=== PATIENT | male | born 1965 | race Caucasian/White ===

== ENCOUNTER 2018-08-06 14:30 | Inpatient (IN) | payer BC, OTHER ==
[2018-08-06 15:15] LABS: VENOUS BASE EXCESS -14.1 (-2.0-2.0); VENOUS HCO3 13.7 MEQ/L (23.0-27.0); VENOUS O2 SATURATION 74.9 % (60.0-80.0); VENOUS PARTIAL PRESSURE CO2 38.6 mmHg (38.0-50.0); VENOUS PARTIAL PRESSURE O2 42.4 mmHg (30.0-50.0); VENOUS PH 7.169 UNITS (7.330-7.430); VENOUS STANDARD HCO3 13.6 MEQ/L; VENOUS TOTAL CO2 14.9 MEQ/L (24.0-28.0)
[2018-08-06] MEDS: INSULIN HUMAN REGULAR 100 UNITS in NS 99 ML IV (15:15)
[2018-08-06 15:25] LABS: BASO % 0.3 % (0.0-1.0); HEMATOCRIT 49.1 % (42.0-52.0); HEMOGLOBIN 17.1 g/dl (13.5-17.5); IMMATURE GRANULOCYTE % 0.6 % (0-3.0); LYMPH # 1.8 10^3/uL (1.5-4.5); LYMPH % 15.7 % (24.0-44.0); MEAN CORPUSCULAR HEMOGLOBIN 30.5 pg (27.0-33.0); MEAN CORPUSCULAR HGB CONC 34.8 g/dl (32.0-36.5); MEAN CORPUSCULAR VOLUME 87.5 fl (80.0-96.0); MONO % 8.2 % (0.0-5.0); NEUTROPHILS # 8.8 10^3/uL (1.8-7.7); NEUTROPHILS % 75.2 % (36.0-66.0); PLATELET COUNT, AUTOMATED 231 10^3/uL (150-450); RED BLOOD COUNT 5.61 10^6/uL (4.30-6.10); RED CELL DISTRIBUTION WIDTH 12.7 % (11.5-14.5); WHITE BLOOD COUNT 11.7 10^3/uL (4.0-10.0)
[2018-08-06 15:33] LABS: ANION GAP 18 MEQ/L (8-16); BLOOD UREA NITROGEN 25 MG/DL (7-18); CALCIUM LEVEL 11.6 MG/DL (8.5-10.1); CARBON DIOXIDE LEVEL 13 MEQ/L (21-32); CHLORIDE LEVEL 97 MEQ/L (98-107); CREATININE FOR GFR 1.56 MG/DL (0.70-1.30); GLOMERULAR FILTRATION RATE 49.8 (>56); GLUCOSE, FASTING 227 MG/DL (70-100); POTASSIUM SERUM 4.8 MEQ/L (3.5-5.1); SODIUM LEVEL 128 MEQ/L (136-145)
[2018-08-06 15:36] LABS: ESTIMATED AVERAGE GLUCOSE 197 MG/DL (60-110); HEMOGLOBIN A1c 8.5 %
[2018-08-06] MEDS ORDERED: NS 1,000 ML IV (16:00)
[2018-08-06 16:03] LABS: ACETONE/KETONE > 46.00 MG/DL (<2.81); ALBUMIN 4.3 GM/DL (3.2-5.2); ALBUMIN/GLOBULIN RATIO 1.08 (1.00-1.93); ALKALINE PHOSPHATASE 52 U/L (45-117); ALT/SGPT 55 U/L (12-78); AST/SGOT 17 U/L (7-37); BILIRUBIN,DIRECT 0.2 MG/DL (0.0-0.2); BILIRUBIN,TOTAL 0.8 MG/DL (0.2-1.0); CK-MB VALUE MASS < 1.0 NG/ML (<3.6); CPK CREATINE PHOSPHOKINASE 50 U/L (39-308); LIPASE 221 U/L (73-393); TOTAL PROTEIN 8.3 GM/DL (6.4-8.2); TROPONIN I < 0.02 NG/ML (< 0.10)
[2018-08-06] MEDS ORDERED: KCL 20MEQ in NS 1000ML 1,000 ML IV (16:24)
[2018-08-06] MEDS ORDERED: INSULIN IV RATE CHANGE DOCUMENTATION ML/HR XX (16:30)
[2018-08-06] MEDS ORDERED: HumuLIN R (REGULAR) INSULIN (NovoLIN R) **100U/ML** PER UNIT As Ordered (17:00)
[2018-08-06] MEDS: KCL 20MEQ IN D5/0.45NS 1000ML 1,000 ML IV (17:00)
[2018-08-06 17:20] LABS: BEDSIDE GLUCOSE 203 MG/DL (70-105)
[2018-08-06 18:33] LABS: BEDSIDE GLUCOSE 201 MG/DL (70-105)
[2018-08-06 19:26] LABS: BEDSIDE GLUCOSE 173 MG/DL (70-105)
[2018-08-06] MEDS ORDERED: FLUBLOK(EGG FREE)(QUAD)INFLUENZA VACC 0.5ML SYRINGE (90682)18YRS&OLDER IM (19:30)
[2018-08-06 19:33] LABS: ANION GAP 14 MEQ/L (8-16); BLOOD UREA NITROGEN 23 MG/DL (7-18); CALCIUM LEVEL 10.6 MG/DL (8.5-10.1); CARBON DIOXIDE LEVEL 13 MEQ/L (21-32); CHLORIDE LEVEL 102 MEQ/L (98-107); CREATININE FOR GFR 1.48 MG/DL (0.70-1.30); GLOMERULAR FILTRATION RATE 52.9 (>56); GLUCOSE, FASTING 203 MG/DL (70-100); MAGNESIUM LEVEL 2.2 MG/DL (1.8-2.4); POTASSIUM SERUM 4.4 MEQ/L (3.5-5.1); SODIUM LEVEL 129 MEQ/L (136-145)
[2018-08-06 20:23] LABS: BEDSIDE GLUCOSE 181 MG/DL (70-105)
[2018-08-06] MEDS: KCL 20MEQ IN D5/NS 1000ML 1,000 ML IV (20:35)
[2018-08-06] MEDS: HumaLOG INSULIN (NovoLOG) PER UNIT SC (21:00)
[2018-08-06 21:01] LABS: BEDSIDE GLUCOSE 217 MG/DL (70-105)
[2018-08-06] MEDS: ATORVASTATIN 20 MG TAB PO (21:19)
[2018-08-06] MEDS: HEPARIN SOD (PORCINE) 5000 UNITS/ML VIAL SC (21:19)
[2018-08-06] MEDS: CARVedilol 3.125 MG TAB PO (21:19)
[2018-08-06] MEDS: ACETAMINOPHEN TAB 650MG DOSE (2X325MG) PO (21:20)
[2018-08-06 21:37] LABS: ANION GAP 13 MEQ/L (8-16); BLOOD UREA NITROGEN 23 MG/DL (7-18); CARBON DIOXIDE LEVEL 16 MEQ/L (21-32); CHLORIDE LEVEL 101 MEQ/L (98-107); CREATININE FOR GFR 1.48 MG/DL (0.70-1.30); GLOMERULAR FILTRATION RATE 52.9 (>56); GLUCOSE, FASTING 184 MG/DL (70-100); POTASSIUM SERUM 4.3 MEQ/L (3.5-5.1); SODIUM LEVEL 130 MEQ/L (136-145)
[2018-08-06 22:43] LABS: BEDSIDE GLUCOSE 227 MG/DL (70-105)
[2018-08-06 23:20] LABS: BLOOD UREA NITROGEN 24 MG/DL (7-18); CREATININE FOR GFR 1.37 MG/DL (0.70-1.30); GLUCOSE, FASTING 206 MG/DL (70-100)
[2018-08-06 23:21] LABS: ANION GAP 17 MEQ/L (8-16); CALCIUM LEVEL 9.5 MG/DL (8.5-10.1); CARBON DIOXIDE LEVEL 13 MEQ/L (21-32); CHLORIDE LEVEL 102 MEQ/L (98-107); GLOMERULAR FILTRATION RATE 57.9 (>56); POTASSIUM SERUM 4.3 MEQ/L (3.5-5.1); SODIUM LEVEL 132 MEQ/L (136-145)
[2018-08-06 23:34] LABS: CPK CREATINE PHOSPHOKINASE 57 U/L (39-308); MB/CK RELATIVE INDEX 1.75 (< OR =4); TROPONIN I < 0.02 NG/ML (< 0.10)
[2018-08-06] MEDS ORDERED: GLUCOSE 4 GM CHEW TABLET PO (23:45)
[2018-08-06] MEDS ORDERED: GLUCAGON FOR INJ 1 MG VIAL (J1610) SC (23:45)
[2018-08-06] MEDS ORDERED: DEXTROSE 50% 50 ML SYRINGE IV (23:45)
[2018-08-07 00:49] LABS: ANION GAP 16 MEQ/L (8-16); BLOOD UREA NITROGEN 23 MG/DL (7-18); CALCIUM LEVEL 9.3 MG/DL (8.5-10.1); CARBON DIOXIDE LEVEL 13 MEQ/L (21-32); CHLORIDE LEVEL 102 MEQ/L (98-107); CREATININE FOR GFR 1.39 MG/DL (0.70-1.30); GLOMERULAR FILTRATION RATE 56.9 (>56); GLUCOSE, FASTING 232 MG/DL (70-100); POTASSIUM SERUM 4.4 MEQ/L (3.5-5.1); SODIUM LEVEL 131 MEQ/L (136-145)
[2018-08-07 03:01] LABS: ANION GAP 13 MEQ/L (8-16); BLOOD UREA NITROGEN 22 MG/DL (7-18); CALCIUM LEVEL 8.7 MG/DL (8.5-10.1); CARBON DIOXIDE LEVEL 15 MEQ/L (21-32); CHLORIDE LEVEL 104 MEQ/L (98-107); CREATININE FOR GFR 1.32 MG/DL (0.70-1.30); GLOMERULAR FILTRATION RATE > 60.0 (>56); GLUCOSE, FASTING 230 MG/DL (70-100); POTASSIUM SERUM 4.3 MEQ/L (3.5-5.1); SODIUM LEVEL 132 MEQ/L (136-145)
[2018-08-07] MEDS: KCL 20MEQ IN D5/NS 1000ML 1,000 ML IV (03:40)
[2018-08-07] MEDS: HEPARIN SOD (PORCINE) 5000 UNITS/ML VIAL SC ×3 (06:49→21:55)
[2018-08-07 06:56] LABS: HEMATOCRIT 44.2 % (42.0-52.0); HEMOGLOBIN 15.4 g/dl (13.5-17.5); MEAN CORPUSCULAR HEMOGLOBIN 30.7 pg (27.0-33.0); MEAN CORPUSCULAR HGB CONC 34.8 g/dl (32.0-36.5); MEAN CORPUSCULAR VOLUME 88.2 fl (80.0-96.0); PLATELET COUNT, AUTOMATED 172 10^3/uL (150-450); RED BLOOD COUNT 5.01 10^6/uL (4.30-6.10); RED CELL DISTRIBUTION WIDTH 12.7 % (11.5-14.5); WHITE BLOOD COUNT 11.4 10^3/uL (4.0-10.0)
[2018-08-07 07:18] LABS: ANION GAP 10 MEQ/L (8-16); BLOOD UREA NITROGEN 19 MG/DL (7-18); CALCIUM LEVEL 8.4 MG/DL (8.5-10.1); CARBON DIOXIDE LEVEL 17 MEQ/L (21-32); CHLORIDE LEVEL 106 MEQ/L (98-107); CREATININE FOR GFR 1.28 MG/DL (0.70-1.30); GLOMERULAR FILTRATION RATE > 60.0 (>56); GLUCOSE, FASTING 228 MG/DL (70-100); POTASSIUM SERUM 4.3 MEQ/L (3.5-5.1); SODIUM LEVEL 133 MEQ/L (136-145)
[2018-08-07 07:23] LABS: CK-MB VALUE MASS < 1.0 NG/ML (<3.6); CPK CREATINE PHOSPHOKINASE 46 U/L (39-308); MB/CK RELATIVE INDEX 2.17 (< OR =4); TROPONIN I < 0.02 NG/ML (< 0.10)
[2018-08-07] MEDS: LISINOPRIL 20 MG TAB PO ×2 (08:41→08:44)
[2018-08-07] MEDS: LEVEMIR (INSULIN DETEMIR) 1 UNITS/0.01ML SC (08:43)
[2018-08-07] MEDS: HumaLOG INSULIN (NovoLOG) PER UNIT SC ×4 (08:43→21:00)
[2018-08-07] MEDS: ACETAMINOPHEN TAB 650MG DOSE (2X325MG) PO (08:44)
[2018-08-07] MEDS: ESCITALOPRAM OXALATE 10 MG TAB (LEXAPRO) PO (08:44)
[2018-08-07] MEDS: CO-ENZYME Q10 50 MG CAP PO (08:44)
[2018-08-07] MEDS: CARVedilol 3.125 MG TAB PO ×2 (08:44→20:06)
[2018-08-07] MEDS: ASPIRIN 325 MG TAB PO (08:44)
[2018-08-07 09:18] LABS: VENOUS BASE EXCESS -9.9 (-2.0-2.0); VENOUS O2 SATURATION 75.9 % (60.0-80.0); VENOUS PARTIAL PRESSURE CO2 35.5 mmHg (38.0-50.0); VENOUS PARTIAL PRESSURE O2 40.2 mmHg (30.0-50.0); VENOUS PH 7.271 UNITS (7.330-7.430); VENOUS STANDARD HCO3 16.3 MEQ/L; VENOUS TOTAL CO2 17.1 MEQ/L (24.0-28.0)
[2018-08-07] MEDS: NS 1,000 ML IV ×2 (12:00→21:55)
[2018-08-07 12:01] LABS: BEDSIDE GLUCOSE 217 MG/DL (70-105)
[2018-08-07 17:12] LABS: BEDSIDE GLUCOSE 252 MG/DL (70-105)
[2018-08-07 17:21] LABS: VENOUS BASE EXCESS -5.3 (-2.0-2.0); VENOUS HCO3 19.7 MEQ/L (23.0-27.0); VENOUS PARTIAL PRESSURE O2 55.8 mmHg (30.0-50.0); VENOUS PH 7.345 UNITS (7.330-7.430); VENOUS TOTAL CO2 20.9 MEQ/L (24.0-28.0)
[2018-08-07 17:42] LABS: ANION GAP 11 MEQ/L (8-16); BLOOD UREA NITROGEN 18 MG/DL (7-18); CALCIUM LEVEL 8.1 MG/DL (8.5-10.1); CARBON DIOXIDE LEVEL 21 MEQ/L (21-32); CHLORIDE LEVEL 102 MEQ/L (98-107); CREATININE FOR GFR 1.17 MG/DL (0.70-1.30); GLOMERULAR FILTRATION RATE > 60.0 (>56); GLUCOSE, FASTING 231 MG/DL (70-100); POTASSIUM SERUM 3.9 MEQ/L (3.5-5.1); SODIUM LEVEL 134 MEQ/L (136-145)
[2018-08-07] MEDS: ATORVASTATIN 20 MG TAB PO (20:06)
[2018-08-07 21:07] LABS: BEDSIDE GLUCOSE 222 MG/DL (70-105)
[2018-08-08] MEDS: HEPARIN SOD (PORCINE) 5000 UNITS/ML VIAL SC (05:40)
[2018-08-08 06:11] LABS: HEMATOCRIT 42.7 % (42.0-52.0); HEMOGLOBIN 14.8 g/dl (13.5-17.5); MEAN CORPUSCULAR HEMOGLOBIN 30.6 pg (27.0-33.0); MEAN CORPUSCULAR HGB CONC 34.7 g/dl (32.0-36.5); MEAN CORPUSCULAR VOLUME 88.2 fl (80.0-96.0); PLATELET COUNT, AUTOMATED 168 10^3/uL (150-450); RED BLOOD COUNT 4.84 10^6/uL (4.30-6.10); RED CELL DISTRIBUTION WIDTH 12.7 % (11.5-14.5); WHITE BLOOD COUNT 7.8 10^3/uL (4.0-10.0)
[2018-08-08 06:32] LABS: ANION GAP 7 MEQ/L (8-16); BLOOD UREA NITROGEN 12 MG/DL (7-18); CALCIUM LEVEL 7.8 MG/DL (8.5-10.1); CARBON DIOXIDE LEVEL 26 MEQ/L (21-32); CHLORIDE LEVEL 103 MEQ/L (98-107); CREATININE FOR GFR 0.96 MG/DL (0.70-1.30); GLOMERULAR FILTRATION RATE > 60.0 (>56); GLUCOSE, FASTING 193 MG/DL (70-100); POTASSIUM SERUM 3.3 MEQ/L (3.5-5.1); SODIUM LEVEL 136 MEQ/L (136-145)
[2018-08-08] MEDS: ASPIRIN 325 MG TAB PO (10:26)
[2018-08-08] MEDS: HumaLOG INSULIN (NovoLOG) PER UNIT SC (10:26)
[2018-08-08] MEDS: CO-ENZYME Q10 50 MG CAP PO (10:26)
[2018-08-08] MEDS: CARVedilol 3.125 MG TAB PO (10:27)
[2018-08-08] MEDS: ESCITALOPRAM OXALATE 10 MG TAB (LEXAPRO) PO (10:27)
[2018-08-08] MEDS: LISINOPRIL 20 MG TAB PO (10:27)
[2018-08-08] MEDS: POTASSIUM CHLORIDE 10 MEQ SR TABLET PO (10:28)
[2018-08-08 11:57] LABS: BEDSIDE GLUCOSE 269 MG/DL (70-105)
[2018-08-09] MEDS ORDERED: LEVEMIR (INSULIN DETEMIR) 1 UNITS/0.01ML SC (09:00)
[2018-08-09 10:06] LABS: VITAMIN B12 LEVEL 713 PG/ML (247-911)
== END 2018-08-08 14:45 | disposition home or self-care (01) | DRG 420 ==
LOC: M MSPAV 08-07 11:39 → M ED 14:30 → M ED INP 17:31 → M ICU 20:54
DX: E11.10 Type 2 diabetes mellitus with ketoacidosis without coma (principal); N17.9 Acute kidney failure, unspecified; E86.0 Dehydration; K21.9 Gastro-esophageal reflux disease without esophagitis; I10 Essential (primary) hypertension; F32.9 Major depressive disorder, single episode, unspecified; Z79.899 Other long term (current) drug therapy; Z79.4 Long term (current) use of insulin; E78.5 Hyperlipidemia, unspecified; I25.10 Atherosclerotic heart disease of native coronary artery without angina pectoris

== ENCOUNTER → 2018-08-06 | Outpatient (CLI) | payer OTHER, BC ==
[2018-08-06 15:06] LABS: BASO % 0.2 % (0.0-1.0); EOS % 0.1 % (0.0-3.0); HEMOGLOBIN 16.9 g/dl (13.5-17.5); IMMATURE GRANULOCYTE % 0.8 % (0-3.0); LYMPH # 2.5 10^3/uL (1.5-4.5); LYMPH % 19.4 % (24.0-44.0); MEAN CORPUSCULAR HEMOGLOBIN 30.6 pg (27.0-33.0); MEAN CORPUSCULAR HGB CONC 33.8 g/dl (32.0-36.5); MEAN CORPUSCULAR VOLUME 90.6 fl (80.0-96.0); MONO # 1.1 10^3/uL (0.0-0.8); MONO % 8.7 % (0.0-5.0); NEUTROPHILS % 70.8 % (36.0-66.0); PLATELET COUNT, AUTOMATED 230 10^3/uL (150-450); RED BLOOD COUNT 5.52 10^6/uL (4.30-6.10); RED CELL DISTRIBUTION WIDTH 12.7 % (11.5-14.5); WHITE BLOOD COUNT 12.7 10^3/uL (4.0-10.0)
[2018-08-06 15:37] LABS: ANION GAP 16 MEQ/L (8-16); AST/SGOT 19 U/L (7-37); BLOOD UREA NITROGEN 24 MG/DL (7-18); CALCIUM LEVEL 11.9 MG/DL (8.5-10.1); CARBON DIOXIDE LEVEL 15 MEQ/L (21-32); CHLORIDE LEVEL 97 MEQ/L (98-107); CREATININE FOR GFR 1.59 MG/DL (0.70-1.30); GLOMERULAR FILTRATION RATE 48.7 (>56); GLUCOSE, FASTING 247 MG/DL (70-100); SODIUM LEVEL 128 MEQ/L (136-145)
[2018-08-06 15:38] LABS: ALBUMIN 4.5 GM/DL (3.2-5.2); ALBUMIN/GLOBULIN RATIO 1.25 (1.00-1.93); ALKALINE PHOSPHATASE 54 U/L (45-117); ALT/SGPT 55 U/L (12-78); BILIRUBIN,TOTAL 0.7 MG/DL (0.2-1.0); TOTAL PROTEIN 8.1 GM/DL (6.4-8.2)
== END ==
LOC: M WUC 13:49
DX: R11.2 Nausea with vomiting, unspecified (principal)
CPT/HCPCS: 80053

== ENCOUNTER → 2022-10-10 | Outpatient (CLI) | payer BC, OTHER ==
[~2022-10-10] MED LIST: ALCOPAD17 TOP; ASPI-1 PO; ATOR40TA75 PO; BLOOKIT21 XX; CARV3.12 PO; COEN100T PO; GLUC1TES2 XX; INVO100T PO; JANU100T PO; LANC30MI XX; LEVE1INJ5 SC; LEXA1TAB PO; LISI20TA33 PO; METF-877 PO; PEN1MIS21 SC
== END ==
LOC: M SOG 08:49
PROVIDERS: ATTEND Orthopaedic Surgery Hand Surgery
DX: M19.042 Primary osteoarthritis, left hand (principal); M19.032 Primary osteoarthritis, left wrist

== ENCOUNTER → 2024-10-25 | Outpatient (CLI) | payer BC, OTHER ==
[~2024-10-25] MED LIST changes: +INSU100I6 SC; -LEVE1INJ5 SC; +PEN-308 SC; -PEN1MIS21 SC
== END ==
LOC: M SOG 08:04
PROVIDERS: ATTEND Physician Assistant
DX: M13.842 Other specified arthritis, left hand (principal)